=== PATIENT | male | born 1985 | race Two or more races ===

== ENCOUNTER 2018-09-29 06:36 | Day surgery (SDC) | payer OTHER ==
[~2018-09-29] VITALS: Ht 182.9 cm; Wt 88.5 kg
[2018-09-29] VITALS (9 sets, daily range): BP systolic 108–145; BP diastolic 66–96
[~2018-09-29 06:36] MED LIST: COSOPT1 DRO2 BOTH EYES; ceFAZolin sod 1gm in NS 55ml IVPB ONE; celeBREX 200mg Cap **SURGERY PATIENTS ONLY ORAL ONE; oxyCONTIN 20mg tab ORAL ONE
[2018-09-29] MEDS ORDERED: Zemuron 50mg/5ml Inj IV ONE (06:50)
[2018-09-29] MEDS ORDERED: Succinylcholine 20mg/ml 10ml vial ONE (06:51)
[2018-09-29] MEDS ORDERED: FISH OIL CAP1000 MG ORAL (07:06)
[2018-09-29] MEDS ORDERED: MULTIVITAMINS1 EAC2 ORAL (07:06)
[2018-09-29] MEDS ORDERED: VITAMIN B12-FO1 EAC1 PO (07:06)
[2018-09-29] MEDS ORDERED: Bupivacaine w/Epi 0.25% 30ml Vial INJ ONE (07:23)
[2018-09-29] MEDS ORDERED: EPINEPHrine 1mg/1ml Amp ONE (07:23)
[2018-09-29] MEDS ORDERED: Lidocaine 1% MPF 10mg/ml 5ml ONE (07:58)
[2018-09-29] MEDS ORDERED: fentaNYL 100 mcg/2 mL IV ONE (07:58)
[2018-09-29] MEDS ORDERED: Propofol 200mg/20ml IV ONE (07:58)
[2018-09-29] MEDS ORDERED: Midazolam 2mg/2ml Inj ONE ×2 (07:58→08:18)
[2018-09-29] MEDS ORDERED: LR 1000ml ONE (08:04)
[2018-09-29] MEDS ORDERED: Sterile Water Irrig 1000ml IRRIG ONE (08:04)
[2018-09-29] MEDS ORDERED: NS Irrig 1000ml ONE (08:04)
--- NOTE | 2018-09-29 08:10 | Operative Note - PDOC ---
Operative Note Operative Note Pre-op Diagnosis: left shoulder internal derangement Procedure: see op report Post-op Diagnosis: same as pre-op plus Operative Findings: consistent w/pre-op dx studies Anesthesia: general Specimen: none Complications: none Condition: stable Estimated Blood Loss: none Implant(s) used?: No Donte Suárez MD Sep 29, 2018 08:10
--- NOTE | 2018-09-29 08:10 | Pre-Procedure Note/Attestation ---
Pre-Procedure Note/Attestation Complete Prior to Procedure Planned Procedure: left Procedure Narrative: shoulder arthroscopy, possible labral repair Indications for Procedure Pre-Operative Diagnosis: left shoulder internal derangement Attestation I attest that I discussed the nature of the procedure; its benefits; risks and complications; and alternatives (and the risks and benefits of such alternatives ), prior to the procedure, with the patient (or the patient's legal industrial relations representative). I attest that, if there was a reasonable possibility of needing a blood transfusion, the patient (or the patient's legal industrial relations representative) was given the [facility] standardized written summary, pursuant to the [place] Blood Safety Act ([place] Health and Safety Code # 1645, as amended). I attest that I re-evaluated the patient just prior to the surgery and that there has been no change in the patient's H&P, except as documented below: Donte Suárez MD Sep 29, 2018 08:10
[2018-09-29] MEDS ORDERED: Ketamine 500mg Inj ONE (08:11)
[2018-09-29] MEDS ORDERED: D5 1/2NS 1,000 ML IV SCH (08:15)
[2018-09-29] MEDS ORDERED: Tylenol #3 tab (300mg/30mg) ORAL PRN (08:15)
[2018-09-29] MEDS ORDERED: Norco 5mg/325mg tab ORAL PRN (08:15)
[2018-09-29] MEDS ORDERED: HYDROmorphone 1mg/ml Carpuject SUBQ PRN (08:15)
[2018-09-29] MEDS ORDERED: Ketorolac 30mg Inj ONE (08:47)
[2018-09-29] MEDS ORDERED: Dexamethasone 4mg/ml vial ONE (08:47)
[2018-09-29] MEDS ORDERED: LR 1000ml 1,000 ML IVLG SCH (08:54)
--- NOTE | 2018-09-29 08:54 | Anethesia Preoperative Eval ---
Anesthesia Pre-op PMH/ROS General Date of Evaluation: Sep 29, 2018 Anesthesiologist: Kam ASA Score: ASA 2 Mallampati Score Class I : Soft palate, uvula, fauces, pillars visible Class II: Soft palate, uvula, fauces visible Class III: Soft palate, base of uvula visible Class IV: Only hard plate visible Mallampati Classification: Class II Surgeon: Jose Armando Diagnosis: Left shoulder pain Surgical Procedure: Left shoulder arthroscopy Anesthesia History: none Family History: no anesthesia problems Allergies: Coded Allergies: No Known Allergies (Unverified , 09/29/18) Medications: see eMAR Patient NPO?: Yes NPO Date: Sep 28, 2018 NPO Time: 20:00 Past Medical History Cardiovascular: Denies: HTN, CAD, [place], valve dz, arrhythmia, other Pulmonary: Denies: asthma, COPD, LENNY, other Gastrointestinal/Genitourinary: Denies: GERD, CRI, ESRD, other Neurologic/Psychiatric: Denies: dementia, CVA, depression/anxiety, TIA, other Endocrine: Denies: DM, hypothyroidism, steroids, other HEENT: 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 Exam Physician Exam Last Vital Signs Date Time Temp Pulse Resp B/P (MAP) Pulse Ox O2 Delivery O2 Flow Rate FiO2 09/29/18 07:20 Room Air 09/29/18 07:03 97.4 50 18 117/68 100 Constitutional: NAD, other - diffuse slightly erythrematous rash throughout, patient states its a heat rash, is his baseline Cardiovascular: RRR Respiratory: CTA Airway Exam Mallampati Score: Class II MO: full ROM: full Teeth: intact Anesthesia Pre-op A/P Labs see chart Studies Pre-op Studies: EKG - sr Risk Assessment & Plan Assessment: ASA II Plan: GA and left interscalene nerve block Status Change Before Surgery: No Pre-Antibiotics Drug: Ancef 2g Given Within 1 Hr of Incision: Yes - 0815 Time Given: 08:15 Yadira Antoine MD Sep 29, 2018 08:54
[2018-09-29] MEDS ORDERED: Ketorolac 30mg Inj IV PRN (09:00)
[2018-09-29] MEDS ORDERED: fentaNYL 100 mcg/2 mL IV PRN (09:00)
[2018-09-29] MEDS ORDERED: Hydromorphone 0.5mg/0.5ml inj IVP PRN (09:00)
[2018-09-29] MEDS ORDERED: Midazolam 2mg/2ml Inj IVP PRN (09:00)
[2018-09-29] MEDS ORDERED: DiphenhydrAMINE 50mg/ml Inj IVP PRN (09:00)
[2018-09-29] MEDS ORDERED: LORazepam Inj 2mg/ml 1ml IV PRN (09:00)
--- NOTE | 2018-09-29 10:02 | Immediate Post-Op Evaluation ---
Immediate Post-Op Evalulation Immediate Post-Op Evalulation Procedure: Left shoulder arthroscopy with labral repair Date of Evaluation: Sep 29, 2018 Time of Evaluation: 10:03 IV Fluids: 800 Blood Products: 0 Estimated Blood Loss: min Urinary Output: 0 Blood Pressure Systolic: 108 Blood Pressure Diastolic: 69 Pulse Rate: 71 Respiratory Rate: 16 O2 Sat by Pulse Oximetry: 100 Temperature (Fahrenheit): 97.2 Pain Score (1-10): 0 Nausea: No Vomiting: No Complications 0 Patient Status: awake, reacts, patent, none Hydration Status: adequate Drug: Ancef 2g Given Within 1 Hr of Incision: Yes Time Given: 08:15 Yadira Antoine MD Sep 29, 2018 10:02
--- NOTE | 2018-09-29 10:03 | 48 Hour Post Anesthesia Eval ---
Post Anesthesia Evaluation Procedure: Left shoulder arthroscopy with labral repair Date of Evaluation: Sep 29, 2018 Airway: patent Nausea: No Vomiting: No Pain Intensity: 0 Hydration Status: adequate Cardiopulmonary Status: at baseline Mental Status/LOC: patient returned to baseline Post-Anesthesia Complications: 0 Follow-up care needed: ready to discharge Yadira Antoine MD Sep 29, 2018 10:03
--- NOTE | 2018-09-29 16:15 | Operative Note - Dictated ---
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 POSTOPERATIVE DIAGNOSIS: Left shoulder instability secondary to the anterior labral tear. PROCEDURES PERFORMED: 1. Left shoulder diagnostic arthroscopy extensive intra-articular debridement. 2. Left shoulder anterior labral repair. SURGEON: Donte Suárez M.D. ANESTHESIA: Interscalene with general. INDICATION FOR PROCEDURE: The patient is a pleasant gentleman, who has had progressive left shoulder pain after trauma. He had an MRI, which showed an anterior labral tear instability despite conservative measures. He elected to undergo left shoulder arthroscopy and labral stabilization. Risks, limitations, expectations, and complications related to the procedure were discussed in detail. All questions addressed. DESCRIPTION OF PROCEDURE: Informed consent was obtained. The patient was brought to the operating room and placed under interscalene general anesthesia. Left shoulder was prepped and draped in a sterile manner. Time-out was performed. Ancef was administered. Posterolateral stab incision was then made. Trocar was introduced into the glenohumeral joint. There is fraying of the anterior labrum. There was some grade 2 chondral damage in the inferior aspect of the glenoid. The superior aspect of the labrum along the biceps tendon was intact. The biceps tendon was intact. The rotator cuff was intact. No loose bodies in the inferior axillary pouch. The patient had a positive drive-through test. Visually, it was felt that he had symptomatic instability. Therefore, periosteal tissue was then used to free of the labrum from the medial glenoid to allow the adequate mobilization to the articular margin. Once that was done, 2 anchors were then placed in inferior glenoid. Once they were placed in, the anterior labrum was secured. The patient has had a negative drop test. At this point, the camera was repositioned in the subacromial space. There is no scleral subacromial pathology to address. Therefore, the instrument was removed. Portal sites were closed using 3-0 Monocryl suture. Steri-Strips and sterile dressing was applied. The patient was awoken and taken to recovery room with stable vital signs. ESTIMATED BLOOD LOSS: None. COMPLICATIONS: None. SPECIMENS: None. IMPLANTS: Include 2 [employer] JuggerKnot anchors. Donte Suárez M.D. DR: ANDREW JOB#: [id number] CC: JACE
== END 2018-09-29 11:30 | disposition home or self-care (01) ==
LOC: SUR 06:36
DX: S43.432A Superior glenoid labrum lesion of left shoulder, initial encounter (principal); H40.9 Unspecified glaucoma
CPT/HCPCS: 29807; J0171; J0330; J0690; J1100; J1885; J2250; J2405; J2704; J3010; J3490; 94003; 94150; C1713